=== PATIENT | female | born 1955 | race African-American/Black ===

== ENCOUNTER 2021-10-23 17:55 | Emergency (ER) | payer MEDICARE, OTHER, SELFPAY ==
[2021-10-23] VITALS (9 sets, daily range): BP systolic 119–152; BP diastolic 74–116; PULSE 88–92; RESP 18; TEMP 36.5–36.9; O2SAT 98–100
--- NOTE | ~2021-10-23 | CT_ITS ---
EXAMINATION: CT abdomen pelvis wo con DATE: 10/23/2021 20:23 INDICATION: Abdominal pain TECHNIQUE: Computed tomography (CT) of the abdomen and pelvis was performed without intravenous contr ast. Automated exposure control and iterative reconstruction technique were employed. The dose-length product was 1127.81 mGy-cm. COMPARISON: None FINDINGS: Mild bronchiectatic changes in the bilateral lower lobes. There is also mild dependent atelectasis in the bilateral lower lobes. No pleural effusion. Heart size is normal. Atherosclerotic coronary arter y calcification. Small pericardial effusion. Tiny layering gallstones at the fundus of the normal-lashae earing gallbladder. Common bile duct is mildly dilated to 8 mm without evident obstructing stone or m ass. Liver is normal with no intrahepatic biliary ductal dilation. A few tiny dystrophic calcificatio n in the pancreas which suggests sequela of chronic pancreatitis. No peripancreatic inflammatory stra nding to suggest acute pancreatitis. Spleen and bilateral adrenal glands are normal. 6 mm cyst at the upper pole of the left kidney. Bilateral nonobstructing nephrolithiasis with 2 mm stone on the left and one more stone on the right. Diverticulum at the cecum without adjacent inflammatory change to henderson ggest diverticulitis. Fluid scattered throughout the otherwise normal colon consistent with diarrhea. No bowel obstruction. The appendix is not visualized. No pericecal inflammatory change to suggest ac knik appendicitis. Diffuse mild bladder wall thickening likely related to partially decompressed state . The uterus is not identified and has likely been surgically resected. Multiple phleboliths in the p sarkis. No free intraperitoneal gas or fluid. No pathologically enlarged abdominal or pelvic lymphaden opathy. Stranding surrounding focal soft tissue densities in the subcutaneous fat at both the left an d right lower quadrants, and the left with multiple small calcific location suggesting injection gran ulomata. Severe lower lumbar spondylosis. IMPRESSION: 1. Cholelithiasis and mild dilation of the common bile duct 8 mm without evident distal obstructing g allstone or intrahepatic biliary ductal dilation. Poorly with liver function tests. 2. Small pericardial effusion. 3. Bilateral nonobstructing nephrolithiasis. 4. A few dystrophic pancreatic calcifications suggesting sequela of chronic pancreatitis. No findings to suggest acute pancreatitis but could consider correlation with amylase and lipase as clinically i ndicated. Reviewed, dictated and finalized at location A. APIST PHYSICAL IMPRESSION: 1. Cholelithiasis and mild dilation of the common bile duct 8 mm without eviden t distal obstructing gallstone or intrahepatic biliary ductal dilation. Poorly with liver function tests. 2. Small pericardial effusion. 3. Bilateral nonobstructing nephrolithiasis. 4. A few dystrophic pancreatic calcifications suggesting sequela of chronic torrez creatitis. No findings to suggest acute pancreatitis but could consider correla tion with amylase and lipase as clinically indicated.
--- NOTE | 2021-10-23 18:58 | ED.NAVMDI ---
HPI - Nausea/Vomiting/Diarrhea General Chief complaint: Nausea/Vomiting/Diarrhea Stated complaint: nvd Time Seen by Provider: 10/23/21 18:50 Source: patient Mode of arrival: ambulatory Limitations: no limitations History of Present Illness HPI Narrative: Patient is a 65-year-old female complaining of nausea, vomiting, diarrhea and epigastric discomfort that started 3 weeks ago. Patient describes her vomitus is nonbilious nonbloody. Patient describes her diarrhea as loose watery, nonbloody. Patient states that her epigastric discomfort, described as burning, is exacerbated when she vomits. Patient states that her nausea and vomiting has improved but her diarrhea continues, has had about 5-6 loose watery stools today. Patient states that she has seen her doctor for this, was prescribed medications for diarrhea and vomiting but claims that it provided no relief. Denies any chest pain, shortness of breath, melena, hematochezia, hematemesis, fever or chills. Denies any recent use of antibiotics. Denies any recent hospitalization. Related Data Allergies Allergy/AdvReac Type Severity Reaction Status Date / Time codeine Allergy Unknown Unknown Verified 10/27/17 13:24 Review of Systems Review of Systems: All systems reviewed & are unremarkable except as noted in HPI and below Constitutional: Constitutional: Denies body ache(s), Denies chills, Denies excessive sweating, Denies fatigue, Denies fever(s), Denies headache(s), Denies lethargy, Denies malaise, Denies weakness and Denies weight loss Eyes: Eyes: Denies blurry vision, Denies change in vision and Denies loss of vision ENT: Denies dizziness, Denies ear discharge, Denies headache(s), Denies lip swelling, Denies epistaxis, Denies nasal congestion, Denies neck pain, Denies throat swelling and Denies tongue swelling Cardiovascular: Cardiovascular: Denies chest pain, Denies chest pain at rest, Denies chest pain with activity, Denies diaphoresis, Denies rapid heart rate, Denies edema, Denies irregular heart rhythm, Denies lightheadedness, Denies palpitations, Denies dyspnea and Denies dyspnea on exertion Respiratory: Respiratory: Denies chest congestion, Denies cough, Denies hemoptysis, Denies dyspnea and Denies dyspnea on exertion Gastrointestinal: Gastrointestinal: Denies abdominal pain, Denies melena, Denies hematochezia and Denies hematemesis Musculoskeletal: Musculoskeletal: Denies abnormal gait, Denies deformity, Denies joint swelling, Denies limited range of motion, Denies neck pain and Denies numbness Neurologic: Denies Abnormal speech present, Denies abnormal gait, Denies confusion, Denies dizziness, Denies headache(s), Denies focal weakness, Denies loss of vision, Denies numbness, Denies Other visual disturbances, Denies Sensory deficit (Neuro) and Denies weakness Psychiatric: Psychiatric: Denies confusion, Denies depression, Denies auditory hallucinations, Denies homicidal ideation and Denies suicidal ideation Endocrine: Endocrine: Denies cold intolerance, Denies excessive sweating, Denies fatigue, Denies heat intolerance and Denies palpitations Hematologic/Lymphatic: Hematologic/Lymphatic: Denies easy bleeding and Denies easy bruising Allergic/Immunologic: Allergic/Immunologic: Denies lip swelling, Denies throat swelling and Denies tongue swelling PMFSH Family History Family History Other Cerebrovascular accident Diabetes mellitus Family history of arthritis Family history of cardiovascular disease Family history of malignant neoplasm Hypertension Social History Social History Smoking status: Never smoker Alcohol intake: never Comments Past medical history: Hypertension, hyperlipidemia, diabetes Exam Const: General: cooperative, comfortable, no acute distress, well developed, alert and awake; No confusion Nutritional Appearance: obese Orient[place]
[2021-10-23 19:26] LABS: Eosinophils Absolute Auto 1.1 K/mm3 (0-0.3); Eosinophils Percent Auto 10.6 % (0-4.4); Hematocrit 35.1 % (37.0-47.0); Hemoglobin 11.1 g/dL (12.0-15.0); Immature Granulocyte Absolute 0.02 K/mm3 (0.00-0.031); Immature Granulocyte Percent A 0.2 % (0-0.5); Lymphocytes Absolute Auto 3.77 K/mm3 (0.9-3.2); Lymphocytes Percent Auto 38.2 % (18.3-44.2); Mean Corpuscular HGB Conc 31.6 g/dl (32-36); Mean Corpuscular Hemoglobin 30.2 pg (26-34); Mean Corpuscular Volume 95.4 fl (80-100); Mean Platelet Volume 11.4 fl (7.4-10.4); Monocytes Absolute Auto 0.6 K/mm3 (0.1-0.6); Neutrophils Absolute Auto 4.4 K/mm3 (1.3-6.7); Platelet Count Result 198 k/mm3 (150-375); Red Blood Count 3.68 M/mm3 (4.2-5.4); Red Cell Distribution Width 13.4 % (11.5-14.5); White Blood Count 9.9 K/mm3 (4.5-10.0)
[2021-10-23 19:34] LABS: Add Urine Microscopic? YES; Appearance Urine Cloudy (Clear); Bilirubin Urine Negative (Negative); Blood Urine Negative (Negative); Color Urine Yellow (Yellow); Glucose Urine UA Negative (Negative); Ketones Urine Trace mg/dL (Negative); Leukocyte Esterase Ur Negative LEU/UL (Negative); Mucus Urine Rare /lpf; Nitrate Urine Negative (Negative); Protein Urine 3+ mg/dL (Negative); Specific Grav Ur 1.015 (1.001-1.035); Squamous Epithelial Cell Urine Many /hpf (Few); Urobilinogen Urine Negative mg/dL (<2.0)
[2021-10-23 20:01] LABS: Alanine Aminotransferase 28 U/L (4-35); Albumin Level 3.4 g/dL (3.5-5.1); Alkaline Phosphatase 62 U/L (38-126); Anion Gap 9 mmol/L (8-16); Aspartate Amino Transferase 48 U/L (14-36); Bilirubin,Total 0.5 mg/dL (0.2-1.3); Blood Urea Nitrogen 39 mg/dL (7-17); Calcium 8.3 mg/dL (8.4-10.2); Carbon Dioxide 22 mmol/L (22-30); Chloride 107 mmol/L (98-107); Estimated CRCL calculation 30 ml/min; Estimated Glomerular Filt Rate 25; Glucose 175 mg/dL (65-110); Lipase 44 U/L (23-300); Potassium 3.9 mmol/L (3.4-5.0); Sodium 138 mmol/L (137-145)
== END 2021-10-23 21:32 | disposition home or self-care (01) ==
PROVIDERS: Emergency Provider Emergency Medicine
DX: K52.9 Noninfective gastroenteritis and colitis, unspecified (principal); K80.70 Calculus of gallbladder and bile duct without cholecystitis without obstruction
CPT/HCPCS: 36415; 74176; 80053; 81001; 83690; 85025; 99284

== ENCOUNTER 2021-11-14 09:21 | Outpatient (CLI) | payer MEDICARE, SELFPAY ==
--- NOTE | 2021-11-14 09:26 | ECG_ITS ---
Measurements Intervals [place] Rate: 94 P: 46 PA: 163 QRS: -19 QRSD: 76 T: 18 QT: 343 QTc: 430 Interpretive Statements SINUS RHYTHM BASELINE ARTIFACT INFERIOR MYOCARDIAL INFARCTION [40+ ms Q WAVE AND/OR ST/T ABNORMALITY IN II/aVF], PROBABLY OLD ABNORMAL ECG NO PREVIOUS ECG AVAILABLE FOR COMPARISON Electronically Signed On 11-14-2021 15:43:55 CDT by Malcolm Nair M.D.
[2021-11-14 10:00] LABS: Amylase 81 U/L (30-110)
== END 2021-11-14 09:22 | disposition home or self-care (01) ==
LOC: ANHSURGERY 09:24
PROVIDERS: PCP Family Medicine; Visit Provider Surgery
DX: Z01.818 Encounter for other preprocedural examination (principal); K80.10 Calculus of gallbladder with chronic cholecystitis without obstruction; E11.9 Type 2 diabetes mellitus without complications; I10 Essential (primary) hypertension; I25.2 Old myocardial infarction
CPT/HCPCS: 36415; 82150; 86850; 86900; 86901; 93005

== ENCOUNTER 2021-11-15 00:57 | Day surgery (SDC) | payer MEDICARE, SELFPAY ==
[2021-11-11 12:49] VITALS: BMI 42.0
--- NOTE | 2021-11-11 12:59 | PC.NURSE ---
Addendum entered by Iraida Lowery RN 11/12/21 15:19: PT TO ARRIVE AT 1200 ON 11/15/21 FOR SURGERY AT 1400. NO VITAMINS/SUPPLEMENTS UNTIL AFTER SURGERY. Original Note: Report to the Outpatient Waiting Room, entrance under the green pavilion located off [facility], at time 10:00 on date 11/20/21. OR Time: 12:00. - You and your visitor will be asked a series of questions to screen for COVID 19 for your protection. - A mask is required within the hospital. One visitor will be allowed to accompany the patient into the hospital. Patients visitor will be instructed to remain with patient at all times or leave the building. We will allow the visitor to come back to the postoperative area when patient is ready. Preoperative COVID Testing Requirements: No COVID Test needed if: (proof is required; if not received patient will have Rapid Test prior to entry) - Patient has received COVID Vaccine at least 14 days prior to procedure date or - Patient has positive COVID test result within last 90 days of surgery date. COVID Test needed if above criteria is not met Patients may have clear liquids (water, carbonated beverages, clear teas, apple juice) until 3 hours prior to surgery (9:00) with a maximum of 20 ounces. - No food from midnight until time of surgery Take the following medications with a SIP of water the morning of surgery: CARVEDILOL Medications to discontinue per physician: VITAMINS/SUPPLEMENTS Date to take last dose: 11/16/21 Please no make-up, nail scottish, hairspray, perfume, deodorant, or body powder the day of surgery. No jewelry (including any body piercings) or valuables the day of surgery, leave them at home. Please take a shower or bath the night before, or the morning of, surgery with an antibacterial soap. Wear comfortable, loose fitting clothing. HIBICLENS SHOWER - Jewelry must be removed prior to entering the operating room. Rings and piercings that are not removed may be cut off. - The hospital will not accept responsibility for valuables. - Please leave all valuables, including medications, at home the day of surgery. If you are going home after surgery, a licensed local city driver must drive you home. - NO public transportation without another adult. - We recommend that an adult stay with you for 24 hours following discharge. - We also recommend that you do not drive, make important decision, drink alcoholic beverages, or take any drugs that were not prescribed by your health care provider for at least 24 hours after your discharge time. Follow any additional instructions given to you from your surgeon. Telephone instructions given to MICKI ADAMS and asked if any additional questions and then verbalized understanding. Patient advised to call surgeon office or pre surgery nurse liaison [phone] if any additional questions.
[2021-11-15] VITALS (9 sets, daily range): BP systolic 92–143; BP diastolic 58–78; PULSE 78–92; RESP 12–20; TEMP 36.2; O2SAT 100; BMI 39.6
--- NOTE | 2021-11-15 13:09 | WPDANESEPPF ---
Anes - Initial Pre Proc Eval Procedure: Operation Date: 11/15/21 14:00 Proposed Procedures p Laparoscopic Cholecystectomy - Nina Dixon MD Date/Time: 11/15/21 13:09 Surgeon: Nina Dixon MD Pre Op Diagnosis: chronic cholecystitis with stones Patient Data Age: 66 Gender: F Height: 1.57 m Weight: 98.5 kg Last Vital Signs Temp 36.2 C L 11/15/21 12:57 Pulse 87 11/15/21 12:57 Resp 20 11/15/21 12:57 BP 92/63 L 11/15/21 12:57 Pulse Ox 100 11/15/21 12:57 Allergies Allergy/AdvReac Type Severity Reaction Status Date / Time codeine Allergy Unknown Hallucinati Verified 11/15/21 12:34 ng tramadol Allergy Hallucinati Verified 11/15/21 12:34 ng Home Medications Medication Instructions Recorded Confirmed Type carvedilol 12.5 mg tablet 12.5 mg PO Q12H 11/01/21 11/15/21 History cholecalciferol (vitamin D3) 25 25 mcg PO DAILY 11/01/21 11/15/21 History mcg (1,000 unit) capsule insulin glargine 100 unit/mL (3 50 unit SUBCUT QPM 11/01/21 11/15/21 History mL) subcutaneous pen insulin lispro 100 unit/mL 20 unit SUBCUT TIDWM 11/01/21 11/15/21 History subcutaneous solution losartan 25 mg tablet 25 mg PO DAILY 11/01/21 11/15/21 History lovastatin 10 mg tablet 10 mg PO DAILY 11/01/21 11/15/21 History chlorthalidone 25 mg PO DAILY 11/11/21 11/15/21 History Patient hx anesthesia problems: none Family hx anesthesia problems: none Results Review: All pre-operative results and documents have been reviewed as part of the pre-operative evaluation. [facility] Past Medical History Medical History Diabetes mellitus Hyperlipidemia Hypertension Surgical History Surgical History History of hysterectomy History of neck surgery Family History Family History Father , age 63 Heart disease Cerebrovascular accident Daughter , age 38 Cancer Sibling , age 40 Breast cancer Heart disease Other Diabetes mellitus Family history of arthritis Family history of cardiovascular disease Family history of malignant neoplasm Hypertension Social History Social History Smoking status: Never smoker Alcohol intake: never Substance use: never Substance use type: does not use Living arrangements: with family Spiritual care concerns: No Anes - Eval Final PreProcedure Day of Procedure 11/15/21 13:09 Patient weight: obese Heart: regular rate and rhythm Lungs: clear to auscultation Airway: Mallampati scale class II Neurological: alert and oriented Last oral intake: >/= 8 hours ASA classification: III Emergent: no Anesthetic plan: proceed Anesthesia type and monitoring: general ETT and standard monitoring Results Review: All pre-operative results and documents have been reviewed as part of the pre-operative evaluation. Informed Consent: The patient's anesthetic plan and its attendant risks and benefits were discussed with the patient/family/POA. Questions were solicited and answers provided to the satisfaction of the patient/family/POA.
[2021-11-15] MEDS: LACTATED RINGERS 1,000 ML 30 ML IV CONT ×2 (13:26→14:47)
--- NOTE | 2021-11-15 13:27 | WPDHPUPDATE1 ---
History and Physical Update Update Date/Time: 11/15/21 13:27 History and Physical has been reviewed, including an updated exam of the patient. There are NO changes in the patient's condition. Risks, benefits, and alternatives have been discussed and questions answered. Patient agrees to proceed with procedure.
[2021-11-15 13:28] LABS: Glucose Point of Care 202 mg/dl (65-105)
[2021-11-15] MEDS: KETOROLAC 15 MG/ML VIAL (*BKC) IV PUSH (13:30)
[2021-11-15] MEDS: ACETAMINOPHEN 500 MG TABLET 1000 MG PO (13:30)
[2021-11-15] MEDS: ceFAZolin 2 GM/D5W 50 ML 2 GM/50 ML BAG IVPB (13:48)
--- NOTE | 2021-11-15 13:49 | SUR.PREOP ---
1230; late note, PT HAS NOTED BILAT LE EDEMA. 1345; DR BAEZ NOTIFIED OF BLOOD SUGAR 202
--- NOTE | 2021-11-15 14:36 | P.OP_ITS ---
Procedure Note - Detailed Date of Procedure 11/15/21 Pre-op Diagnosis chronic cholecystitis with stones Post-op Diagnosis Same Procedure Performed Laparoscopic cholecystectomy Surgeon Nina Dixon MD Anesthesia General Indications 66 y/o F c chronic cholecystitis, cholelithiasis Findings chronic cholecystitis Description of Procedure The patient was taken to the operating room placed in the supine position. After adequate induction of general anesthesia, the patient was prepped and draped in normal sterile fashion. A time-out was then performed to verify the patient's identity as well as the procedure being performed. I then made a 5 mm incision in the infraumbilical region. Through this, a Veress needle was placed into the peritoneal cavity and CO2 gas was then insufflated. After adequate pneumoperitoneum was achieved, the Veress needle was removed and a 5 mm optiview trocar was placed through this incision under direct visualization. I then placed the laparoscope through this trocar site and under direct visualization placed a further 12 mm subxiphoid port as well as 2 additional 5 mm ports in the right upper abdomen. The gallbladder was then identified and was noted to be moderately inflamed, distended, and full of gallstones. I was able to place a grasper at the dome of the gallbladder and this was retracted anterior and cephalad up over the liver. A 2nd retractor was then placed at the infundibulum and retracted laterally, this allowed visualization of the triangle of Calot. I then was able to visualize the cystic duct in its entirety from its proximal insertion into the gallbladder, to its distal junction with the common hepatic/common bile duct junction. At this point, I carefully skeletonized the proximal cystic duct with the [place] dissector. I then clipped and transected the proximal cystic duct. Next I visualized the cystic artery. Again the artery was skeletonized, clipped, and transected. I then used the Bovie cautery to take down the peritoneal attachments of the gallbladder off the liver bed. This was somewhat difficult given the amount of inflammation in the posterior space. Once the gallbladder specimen was completely detached, an endo-pouch was placed through the 12 mm port site. I then placed the gallbladder specimen into the Endo pouch and removed the endo-pouch from the 12 mm port site. The specimen will now be sent to pathology for further review. I then copiously irrigated the right upper quadrant. Some mild oozing was noted in the liver bed and this was controlled with the bovie cautery. I then placed some hemostatic powder in the liver bed. Hemostasis was noted in the liver bed, the clips were noted to be in good position on both the cystic duct stump and the cystic artery stump. No other pathology was noted in the right upper quadrant. I then moved the laparoscope to the subxiphoid port. No iatrogenic injury or other pathology was noted in the lower abdomen. I then closed the 12 mm trocar site under di rect visualization using the Balbir cone and 0 Vicryl suture. At this point, the abdomen was desufflated and all ports removed. All port sites were then closed with 4.O Monocryl subcuticular sutures. Dermabond was placed on each incision. The patient tolerated the procedure well, was extubated in the operating room postoperative and will be transferred to the recovery room in stable condition Estimated Blood Loss 5 Drains No Packing No Pathology Yes Complications No immediate complications Condition Stable Disposition PACU
[2021-11-15 15:00] LABS: Glucose Point of Care 220 mg/dl (65-105)
[2021-11-15] MEDS: INSULIN HUMAN REGULAR (*BKC) 100 UNITS/ML SUB-Q (15:06)
== END 2021-11-15 16:35 | disposition home or self-care (01) ==
PROVIDERS: PCP Family Medicine; Visit Provider Surgery
PROC: 0FT44ZZ Resection of Gallbladder, Percutaneous Endoscopic Approach (ICD-10-PCS; CPT 47562; principal; 2021-11-15 14:00)
DX: K80.10 Calculus of gallbladder with chronic cholecystitis without obstruction (principal); Z79.4 Long term (current) use of insulin; E11.9 Type 2 diabetes mellitus without complications; I10 Essential (primary) hypertension; E78.5 Hyperlipidemia, unspecified; E66.9 Obesity, unspecified; Z68.39 Body mass index [BMI] 39.0-39.9, adult
CPT/HCPCS: 47562; 36415; 82150; 82948; 86850; 86900; 86901; 88304; 93005; A9270; J0690; J1100; J1815; J1885; J2250; J2405; J2704; J2710; J3010; J7030; J7120